=== PATIENT | female | born 1980 | race Caucasian/White ===

== ENCOUNTER 2018-05-25 14:41 | Emergency (ER) | payer SELFPAY ==
[2018-05-25 14:51] VITALS: BP 187/120; PULSE 81; RESP 15; TEMP 37.4; O2SAT 97; BMI 33.6
[2018-05-25 16:24] LABS: Bacteria Urine Many (>30); Culture Indicated Urine Specimen Cultured; RBC Urine 5-10/HPF (0-5/HPF); Squamous Epithelial Cell Urine 5-10 /HPF; WBC Urine 30-100/HPF (0-5/HPF)
--- NOTE | 2018-05-25 18:14 | ED_ITS ---
HPI - Abdominal Pain <DEEDEE Mercado - Last Filed: 05/25/18 21:48> General Chief Complaint: Urogenital-Male Stated Complaint: LEFT SIDED PAIN Time Seen by Provider: 05/25/18 18:14 Source: patient Mode of arrival: ambulatory Limitations: no limitations History of Present Illness HPI narrative: 38-year-old female with history of hypertension here for complaint of having left flank pain over past couple of days. She says that she believes she has urinary tract infection due to increased urinary frequency. She also states she has had chills. No nausea vomiting. Positive p.o. intake. She denies any fevers. No abdominal pain. She denies any other concerns or complaints MD complaint: flank pain Related Data Previous Rx's Medication Instructions Recorded ciprofloxacin HCl 500 mg PO BID #14 tab 05/25/18 Allergies Allergy/AdvReac Type Severity Reaction Status Date / Time No Known Drug Allergies Allergy Verified 05/25/18 14:51 Review of Systems <DEEDEE Mercado - Last Filed: 05/25/18 21:48> Constitutional Reports chills, Denies fever(s), Denies lethargy and Denies weakness Eyes Denies change in vision, Denies eye discharge, Denies irritation and Denies loss of vision ENT Ears, Nose, Mouth, and Throat: Denies change in voice, Denies neck pain and Denies sore throat Cardiovascular Denies chest pain, Denies irregular heart rhythm, Denies lightheadedness, Denies palpitations, Denies dyspnea, Denies dyspnea on exertion and Denies orthopnea Respiratory Denies cough, Denies dyspnea, Denies dyspnea on exertion and Denies wheezing Gastrointestinal Gastrointestinal: Denies abdominal pain, Denies change in bowel habits, Denies diarrhea, Denies nausea and Denies vomiting Genitourinary Reports urinary frequency and Reports flank pain Musculoskeletal Denies neck pain Integumentary/Breasts Denies pruritus, Denies erythema, Denies rash and Denies wounds Neurologic Denies confusion, Denies loss of vision and Denies weakness Psychiatric Denies anxiety, Denies confusion, Denies depression, Denies homicidal ideation and Denies suicidal ideation Endocrine Denies palpitations Hematologic/Lymphatic Denies easy bruising Allergic/Immunologic Denies wheezing Exam <DEEDEE Mercado - Last Filed: 05/25/18 21:48> Initial Vital Signs Initial Vital Signs: Vital Signs Temperature 99.4 F 05/25/18 14:51 Pulse Rate 81 05/25/18 14:51 Respiratory Rate 15 05/25/18 14:51 Blood Pressure 187/120 H 05/25/18 14:51 Pulse Oximetry 97 05/25/18 14:51 Const General: cooperative and well developed Nutritional Appearance: well nourished Orientation: alert, awake, oriented x3 and not confused HENFL Mouth: oral mucosae normal and moist mucous membranes Eyes Conjunctivae: conjunctivae normal Sclera: sclerae normal Pupils: PERRL EOM: EOM intact bilaterally Resp Effort & Inspection: normal respiratory effort, able to speak in complete sentences, no respiratory distress and no use of accessory muscles Auscultation: clear to auscultation bilaterally, no rales, no rhonchi and no wheezes Cardio Rate: regular rate Rhythm: regular rhythm Heart Sounds: no click, no gallops, no murmurs and no rubs GI Inspection: non-distended Palpation: soft, no hepatosplenomegaly, No guarding, No pulsatile mass and No tender Auscultation: normal bowel sounds General: No CVA tenderness Skin General: no rashes or lesions noted, No jaundice and No petechiae Neuro General: alert, oriented x3, gait normal and no focal motor deficits Speech: speech normal <Markel Watson DO - Last Filed: 05/25/18 22:46> Initial Vital Signs Initial Vital Signs: Vital Signs Temperature 99.4 F 05/25/18 14:51 Pulse Rate 81 05/25/18 14:51 Respiratory Rate 15 05/25/18 14:51 Blood Pressure 187/120 H 05/25/18 14:51 Pulse Oximetry 97 05/25/18 14:51 Course <DEEDEE Mercado - Last Filed: 05/25/18 21:48> Orders Ordered: ED Orders 05/25/18 16:05 Urine Culture Stat Urine Microscopic Stat Vital Signs - 8 hr 05/25/18 14:51 05/25/18 18:30 05/25/18 19:23 Temperature 99.4 F Pulse Rate 81 88 Respiratory Rate 15 15 Blood Pressure 187/120 H 166/129 H Blood Pressure [Left Arm] 174/105 H Pulse Oximetry 97 98 <Markel Watson DO - Last Filed: 05/25/18 22:46> Orders Ordered: ED Orders 05/25/18 16:05 Urine Culture Stat Urine Microscopic Stat Vital Signs - 8 hr 05/25/18 14:51 05/25/18 18:30 05/25/18 19:23 Temperature 99.4 F Pulse Rate 81 88 Respiratory Rate 15 15 Blood Pressure 187/120 H 166/129 H Blood Pressure [Left Arm] 174/105 H Pulse Oximetry 97 98 MDM - Abdominal Pain <DEEDEE Mercado - Last Filed: 05/25/18 21:48> Lab Data Lab Results 05/25/18 Range/Units 16:05 Urine RBC 5-10/hpf H (0-5/HPF) Urine WBC 30-100/hpf H (0-5/HPF) Ur Squamous Epith Cells 5-10 /hpf H Urine Bacteria Many (>30) H (None) Ur Culture Indicated? Specimen cultured Micro UA Comment Not Reportable Point of care testing: Point of Care Testing Test Results Negative Urine Dip Bedside Urine Glucose Negative Bedside Urine Bilirubin - Negative Bedside Urine Ketone - Negative Urine Specific [place] 1.015 Bedside Urine Occult Blood ++ Bedside Urine pH 6.0 Bedside Urine Protein + 30 Bedside Urine Urobilinogen - Negative Bedside Urine Nitrite - Negative Bedside Urine Leukocytes +++ 500 Esterase MDM Narrative Medical decision making narrative: Urinalysis indicates urinary tract infection. Will for urinary tract infection with starting a pyelonephritis due to the flank pain with ciprofloxacin. Plenty of fluids. Follow up with primary care provider in the next few days. Patient's blood pressure was elevated today. She states this is normal for her. She does not want to take blood pressure medications as she states that it makes her blood pressure too low. She is encouraged to follow up with primary care provider for further evaluation and treatment. For any worsening symptoms return to the emergency room. <Markel Watson DO - Last Filed: 05/25/18 22:46> Lab Data Lab Results 05/25/18 Range/Units 16:05 Urine RBC 5-10/hpf H (0-5/HPF) Urine WBC 30-100/hpf H (0-5/HPF) Ur Squamous Epith Cells 5-10 /hpf H Urine Bacteria Many (>30) H (None) Ur Culture Indicated? Specimen cultured Micro UA Comment Not Reportable Point of care testing: Point of Care Testing Test Results Negative Urine Dip Bedside Urine Glucose Negative Bedside Urine Bilirubin - Negative Bedside Urine Ketone - Negative Urine Specific [place] 1.015 Bedside Urine Occult Blood ++ Bedside Urine pH 6.0 Bedside Urine Protein + 30 Bedside Urine Urobilinogen - Negative Bedside Urine Nitrite - Negative Bedside Urine Leukocytes +++ 500 Esterase Discharge Plan Departure Patient Disposition: Home Clinical Impression: Urinary tract infection Discharge Date/Time: 05/25/18 19:23 Interventions: ED Discharge Assessment Last Done: 05/25/18 19:23 Instructions: Urinary Tract Infection Activity Restrictions/Additional Instructions: Urinalysis was positive for urinary tract infection. With flank pain will treat for starting a kidney infection. You are prescribed ciprofloxacin which is an antibiotic use as directed. Use [id number] Tylenol as needed for any discomfort. Follow up with her primary care provider. Her blood pressure is elevated today recommend following up with primary care provider for treatment of high blood pressure. Prescriptions: New ciprofloxacin HCl 500 mg tablet 500 mg PO BID Qty: 14 RF: 0 Referrals: [facility] [Provider Group] <Markel Watson DO - Last Filed: 05/25/18 22:46> Cosign ED Attending Ct Attestation: I was available for consultation during this patient's emergency department encounter
[2018-05-25 18:30] VITALS: BP 174/105; PULSE 88; RESP 15; O2SAT 98
[2018-05-25 19:23] VITALS: BP 166/129
== END 2018-05-25 19:23 | disposition home or self-care (01) ==
PROVIDERS: Emergency Medicine; Emergency Provider Nurse Practitioner Family
DX: N39.0 Urinary tract infection, site not specified (principal)
CPT/HCPCS: 81003; 81015; 81025; 87077; 87086; 87186; 99282; 99283

== ENCOUNTER → 2025-06-18 09:46 | Outpatient (CLI) | payer OTHER, SELFPAY ==
--- NOTE | 2025-06-18 09:53 | DI.RAD.S_ITS ---
PROCEDURE: XR HAND RT 2V INDICATIONS: right hand pain TECHNIQUE: 2 views of the hand(s) acquired. COMPARISON: None. FINDINGS: Bones: No fractures or dislocations. Carpal bones are normally aligned. No suspicious bony lesions. Soft tissues: No suspicious soft tissue calcifications. IMPRESSION: No acute bony abnormality. Dictated by: Donaldo Leigh M.D. on 06/18/2025 at 22:56 Approved by: Donaldo Leigh M.D. on 06/18/2025 at 22:57
== END ==
PROVIDERS: Referring Provider Internal Medicine Cardiovascular Disease; Visit Provider Internal Medicine Cardiovascular Disease
DX: M25.541 Pain in joints of right hand (principal)
CPT/HCPCS: 73120